=== PATIENT | male | born 1975 | race African-American/Black ===

== ENCOUNTER 2024-10-18 15:59 | Emergency (ER) | payer SELFPAY ==
[~2024-10-18] VITALS: Ht 172.7 cm; Wt 84.2 kg
[2024-10-18 18:18] VITALS: BP 128/90
[2024-10-18] MEDS ORDERED: NAPROXEN500 MG PO (18:25)
[2024-10-18 18:31] VITALS: BP 125/80
[2024-10-18 18:36] VITALS: BP 125/80
== END 2024-10-18 18:37 | disposition home or self-care (01) | DRG 951 ==
LOC: ED 15:59
DX: Z48.01 Encounter for change or removal of surgical wound dressing (principal); K08.409 Partial loss of teeth, unspecified cause, unspecified class